=== PATIENT | male | born 1995 | race Two or more races ===

== ENCOUNTER → 2024-01-31 | Outpatient (CLI) | payer BC ==
[2024-02-01 05:08] LABS: HSV 1 IgG Antibody Non Reactive (Non Reactive); HSV 2 IgG Antibody Non Reactive (Non Reactive)
[2024-02-01 07:07] LABS: RPR Non Reactive (Non Reactive)
[2024-02-01 09:43] LABS: Hepatitis B Core Total AB Negative (Negative)
[2024-02-01 11:07] LABS: Hepatitis A Ab IgM Negative; Hepatitis A Total Antibody Positive (Negative); Hepatitis B Core IgM Negative; Hepatitis B Surface Antibody Positive (Negative); Hepatitis B Surface Antigen Negative (Negative); Hepatitis C Antibody Negative (Negative)
== END | disposition home or self-care (01) ==
LOC: LAB 08:09
PROVIDERS: ATTEND Nurse Practitioner
DX: Z11.3 Encounter for screening for infections with a predominantly sexual mode of transmission (principal); Z20.2 Contact with and (suspected) exposure to infections with a predominantly sexual mode of transmission
CPT/HCPCS: 36415; 86592; 86695; 86696; 86703; 86704; 86705; 86706; 86708; 86709; 86803; 87340